=== PATIENT | female | born 1985 | race Caucasian/White ===

== ENCOUNTER 2018-07-01 19:36 | Emergency (ER) | payer OTHER ==
[~2018-07-01] VITALS: Ht 165.1 cm; Wt 82.1 kg
[2018-07-01 19:50] VITALS: Ht 165.1 cm; Wt 82.1 kg
[2018-07-01 21:32] LABS: BASOPHIL % 0.7 % (0-2); PLATELET COUNT 266 x10^3mcL (130-400); RED CELL DISTRIBUTION WIDTH 15.1 % (11.5-14.5)
[2018-07-01 23:38] VITALS: BP 110/74
== END 2018-07-01 23:38 | disposition home or self-care (01) ==
LOC: ED 19:36
PROVIDERS: Emergency Medicine
DX: K21.9 Gastro-esophageal reflux disease without esophagitis (principal); Z88.5 Allergy status to narcotic agent
CPT/HCPCS: 36415; 87804; J1885

== ENCOUNTER 2018-11-18 14:26 | Emergency (ER) | payer OTHER ==
[~2018-11-18] VITALS: Ht 165.1 cm; Wt 74.8 kg
[2018-11-18 14:37] VITALS: Ht 165.1 cm; Wt 74.8 kg
[2018-11-18 17:12] LABS: BASOPHIL % 1.2 % (0-2); PLATELET COUNT 344 x10^3mcL (130-400)
[2018-11-18 17:23] LABS: RED CELL DISTRIBUTION WIDTH 18.5 % (11.5-14.5)
[2018-11-18 17:24] LABS: CALCIUM 8.3 mg/dL (8.5-10.1); CARBON DIOXIDE 23.5 mmol/L (21-32); CHLORIDE SERUM 102 mmol/L (98-107); CREATININE SERUM 0.8 mg/dL (0.6-1.0); GFR1 > 60 mL/min; GLUCOSE SERUM 83 mg/dL (74-106); POTASSIUM SERUM 3.8 mmol/L (3.5-5.1); SODIUM SERUM 137 mmol/L (136-145)
[2018-11-18 17:28] LABS: ALBUMIN 3.6 g/dL (3.4-5.0); ALKALINE PHOSPHATASE 77 U/L (46-116); ALT/SGPT 32 U/L (14-59); AMYLASE 31 U/L (25-115); AST/SGOT 20 U/L (15-37); BILIRUBIN TOTAL 0.5 mg/dL (0.20-1.00); LIPASE 81 IU/L (73-393); MAGNESIUM 1.9 mg/dL (1.8-2.4); TOTAL PROTEIN, SERUM 7.7 g/dL (6.4-8.2)
[2018-11-18 17:45] LABS: microscopic required? NO
[2018-11-18 17:58] LABS: urine erythrocyte NEGATIVE (NEGATIVE)
[2018-11-18 19:58] VITALS: BP 118/79
[2018-11-23 10:09] LABS: CK-MB 0 % (0-3); CK-MM 100 % (97-100); MACRO TYPE 1 0 % (Not Observed); MACRO TYPE 2 0 % (Not Observed)
[2018-11-25 08:54] LABS: CK-BB 0 % (0)
== END 2018-11-18 19:08 | disposition home or self-care (01) ==
LOC: ED 14:26
PROVIDERS: Emergency Medicine
DX: T67.9XXA Effect of heat and light, unspecified, initial encounter (principal); D50.9 Iron deficiency anemia, unspecified; X58.XXXA Exposure to other specified factors, initial encounter; Y93.01 Activity, walking, marching and hiking; Y92.89 Other specified places as the place of occurrence of the external cause; Y99.8 Other external cause status
CPT/HCPCS: J1885; J2405; J2765; J7030

== ENCOUNTER 2019-04-08 17:46 | Emergency (ER) | payer OTHER ==
[~2019-04-08] VITALS: Ht 165.1 cm; Wt 80.3 kg
[2019-04-08 17:51] VITALS: Ht 165.1 cm; Wt 80.3 kg
[2019-04-08 21:18] VITALS: BP 119/74
== END 2019-04-08 21:18 | disposition home or self-care (01) ==
LOC: ED 17:46
DX: J20.9 Acute bronchitis, unspecified (principal); Z88.5 Allergy status to narcotic agent

== ENCOUNTER 2019-04-13 14:05 | Emergency (ER) | payer OTHER ==
[~2019-04-13] VITALS: Ht 157.5 cm; Wt 65.3 kg
[2019-04-13 14:29] VITALS: Ht 157.5 cm; Wt 65.3 kg
[2019-04-13 17:19] VITALS: BP 107/61
== END 2019-04-13 17:19 | disposition home or self-care (01) ==
LOC: ED 14:05
DX: J20.9 Acute bronchitis, unspecified (principal); Z90.89 Acquired absence of other organs; Z88.5 Allergy status to narcotic agent; Z98.890 Other specified postprocedural states
CPT/HCPCS: 87804; J1885

== ENCOUNTER 2019-08-09 21:21 | Emergency (ER) | payer OTHER ==
[~2019-08-09] VITALS: Ht 165.1 cm; Wt 74.8 kg
[2019-08-09 21:23] VITALS: Ht 165.1 cm; Wt 74.8 kg
[2019-08-09 23:01] VITALS: BP 108/69
== END 2019-08-09 23:01 | disposition home or self-care (01) ==
LOC: ED 21:21
DX: R07.89 Other chest pain (principal); R00.2 Palpitations; R06.02 Shortness of breath; Z98.890 Other specified postprocedural states; Z90.49 Acquired absence of other specified parts of digestive tract
CPT/HCPCS: Q0092

== ENCOUNTER 2019-09-03 18:26 | Emergency (ER) | payer OTHER ==
[~2019-09-03] VITALS: Ht 162.6 cm; Wt 88.0 kg
[2019-09-03 19:06] VITALS: Ht 162.6 cm; Wt 88.0 kg
[2019-09-03 20:20] LABS: BASOPHIL % 0.5 % (0-2); PLATELET COUNT 368 x10^3mcL (130-400)
[2019-09-03 20:21] LABS: RED CELL DISTRIBUTION WIDTH 16.5 % (11.5-14.5)
[2019-09-03 20:34] LABS: T3 TOTAL 1.28 ng/mL
[2019-09-03 20:40] LABS: CARBON DIOXIDE 25.1 mmol/L (21-32); CHLORIDE SERUM 101 mmol/L (98-107); CREATININE SERUM 0.7 mg/dL (0.6-1.0); GFR1 > 60 mL/min; GLUCOSE SERUM 87 mg/dL (74-106); SODIUM SERUM 138 mmol/L (136-145)
[2019-09-03 20:45] LABS: ALBUMIN 3.7 g/dL (3.4-5.0); ALKALINE PHOSPHATASE 71 U/L (46-116); ALT/SGPT 26 U/L (14-59); AST/SGOT 15 U/L (15-37); BILIRUBIN TOTAL 0.3 mg/dL (0.20-1.00); CHOLESTEROL 196 mg/dL (<200); CHOLESTEROL/HDL RATIO 5.2; HDL CHOLESTEROL 38 mg/dL (40-60); LIPASE 68 IU/L (73-393); TRIGLYCERIDES 122 mg/dL (<150)
[2019-09-03 21:01] LABS: FREE T4 1.04 ng/dL (0.76-1.46); FREE THYROXINE INDEX 2.5 ug/dL (1.4-4.5); T4(THYROXINE) 8.2 ug/dL (4.7-13.3)
[2019-09-03 21:58] VITALS: BP 109/63
[2019-09-03 22:22] LABS: TOTAL PROTEIN, SERUM 8.1 g/dL (6.4-8.2)
== END 2019-09-03 21:58 | disposition home or self-care (01) ==
LOC: ED 18:26
PROVIDERS: Specialist
DX: R42 Dizziness and giddiness (principal); R06.02 Shortness of breath; Z90.89 Acquired absence of other organs; Z41.1 Encounter for cosmetic surgery
CPT/HCPCS: 82962; 83880; 84439; 85378; Q0092

== ENCOUNTER 2020-06-06 20:40 | Emergency (ER) | payer OTHER ==
[~2020-06-06] VITALS: Ht 165.1 cm; Wt 76.2 kg
[2020-06-06 20:46] VITALS: Ht 165.1 cm; Wt 76.2 kg
[2020-06-06 22:54] VITALS: BP 102/58
== END 2020-06-06 22:54 | disposition home or self-care (01) ==
LOC: ED 20:40
DX: F41.9 Anxiety disorder, unspecified (principal); G89.29 Other chronic pain; M54.9 Dorsalgia, unspecified; Z90.89 Acquired absence of other organs